=== PATIENT | female | born 1965 | race Caucasian/White ===

== ENCOUNTER 2022-04-03 08:00 | Outpatient (NON) | payer OTHER, SELFPAY | END 2022-04-03 08:01 | disposition home or self-care (01) | PROVIDERS: PCP Internal Medicine Infectious Disease; Visit Provider Internal Medicine Gastroenterology | DX: K63.5 Polyp of colon (principal) | CPT/HCPCS: 88305 ==

== ENCOUNTER 2022-04-03 12:33 | Day surgery (SDC) | payer OTHER, SELFPAY ==
[2022-03-20 13:17] VITALS: BMI 23.1
--- NOTE | 2022-04-03 11:50 | P.PNAN_ITS ---
Anes - Initial Pre Proc Eval Procedure: Operation Date: 04/03/22 14:30 Proposed Procedures p Screening Colonoscopy - Hernando Boo MD Date/Time: 04/03/22 11:50 Surgeon: Hernando Boo MD Pre Op Diagnosis: History of Polyps Patient Data Age: 56 Gender: F Height: 1.63 m Weight: 61 kg Allergies Allergy/AdvReac Type Severity Reaction Status Date / Time No Known Allergies Allergy Unverified 04/03/22 13:29 Home Medications Medication Instructions Recorded Confirmed Type sodium,potassium,mag sulfates 17.5 See Rx Instructions PO .COMPLEX 02/12/22 03/20/22 Rx gram-3.13 gram-1.6 gram oral soln #354 mL (Suprep Bowel Prep Kit) peg 3350-electrolytes 236 240 ml PO Q10M #4,000 mL 03/30/22 04/03/22 Rx gram-22.74 gram-6.74 gram-5.86 gram solution (Golytely) Patient hx anesthesia problems: none Family hx anesthesia problems: none Results Review: All pre-operative results and documents have been reviewed as part of the pre- operative evaluation. [facility] Social History Social History Smoking packs per day: 1 Smoking cigarettes per day: 20.0 Years smoked: 20 Smoking pack-years: 20.00 Smoking status: Former smoker Tobacco type: cigarettes Alcohol intake: current Substance use: never Substance use type: does not use Living arrangements: with family Spiritual care concerns: No Anes - Eval Final PreProcedure Day of Procedure 04/03/22 11:50 Patient weight: normal Heart: regular rate and rhythm Lungs: decreased breath sounds Airway: Mallampati scale class II Neurological: alert and oriented Last oral intake: >/= 8 hours ASA classification: II Emergent: no Anesthetic plan: proceed Anesthesia type and monitoring: general GIVS and standard monitoring Results Review: All pre-operative results and documents have been reviewed as part of the pre- operative evaluation. Informed Consent: The patient's anesthetic plan and its attendant risks and benefits were discussed with the patient/family/POA. Questions were solicited and answers provided to the satisfaction of the patient/family/POA.
[2022-04-03 13:30] VITALS: BP 114/82; PULSE 69; RESP 20; TEMP 36.7; O2SAT 100
[2022-04-03] MEDS: LACTATED RINGERS 1,000 ML 150 ML IV CONT (13:42)
--- NOTE | 2022-04-03 13:48 | P.HP_ITS ---
History of Present Illness History of Present Illness Consent: Risks, benefits, and alternatives have been discussed and questions answered. Patient agrees to proceed with procedure. Chief complaint: History of Polyps Narrative: Diane Choudhury is a 56 year old female Presents for screening colonoscopy. Patient has a history of adenomatous colon polyp removed the colon 2016. Patient's current weight appetite bowel movements are normal. She denies abdomi nal pain. She has had no bleeding. Family history is somewhat uncertain her parents may have had non Prieb malignant polyps. Patient presents today for neoplasia screening. Review of Systems Review of Systems: Review of systems noncontributory. [facility] Social History Social History Smoking packs per day: 1 Smoking cigarettes per day: 20.0 Years smoked: 20 Smoking pack-years: 20.00 Smoking status: Former smoker Tobacco type: cigarettes Alcohol intake: current Substance use: never Substance use type: does not use Living arrangements: with family Spiritual care concerns: No Meds Home Medications and Allergies Home Medications Medication Instructions Recorded Confirmed Type sodium,potassium,mag sulfates 17.5 See Rx Instructions PO .COMPLEX 02/12/22 03/20/22 Rx gram-3.13 gram-1.6 gram oral soln #354 mL (Suprep Bowel Prep Kit) peg 3350-electrolytes 236 240 ml PO Q10M #4,000 mL 03/30/22 04/03/22 Rx gram-22.74 gram-6.74 gram-5.86 gram solution (Golytely) Allergies Allergy/AdvReac Type Severity Reaction Status Date / Time No Known Allergies Allergy Unverified 04/03/22 13:29 Vital Signs Vital Signs - 24 hr 04/03/22 13:30 Temperature 98.1 F Pulse Rate 69 Respiratory Rate 20 Blood Pressure 114/82 Pulse Oximetry 100 Oxygen Delivery Room Air Exam Narrative: Physical exam reveals patient to be alert. Vital signs stable. HEENT exam is unremarkable. Patient is anicteric. Lungs are clear to auscultation and percussion. Heart is without murmur or extra sounds. Abdomen bowel sounds present soft nontender with no organomegaly. Digital external rectal exam is normal. Assessment and Plan Assessment and plan (1) History of colon polyps: Code(s): Z86.010 - Personal history of colonic polyps Status: Acute Assessment and Plan: Patient has a prior history of adenomatous colon polyp resected from the colon 2017. Plan is for surveillance colonoscopy at this time. Further recommendations will be given after endoscopy.
[2022-04-03 15:19] VITALS: BP 98/67; PULSE 63; RESP 18; TEMP 36.7; O2SAT 100
[2022-04-03 15:29] VITALS: BP 110/77; PULSE 70; RESP 18; O2SAT 100
--- NOTE | 2022-04-03 15:34 | WPDANESPN ---
Anes - Prog Note Post-Op Date/Time: 04/03/22 15:34 Cardiovascular status: normal Respiratory status: normal Airway patency: baseline Mental status: baseline Post-Op hydration status: normal Vital Signs: Last Vital Signs Temp 36.7 C 04/03/22 15:19 Pulse 70 04/03/22 15:29 Resp 18 04/03/22 15:29 BP 110/77 04/03/22 15:29 Pulse Ox 100 04/03/22 15:29 O2 Del Method Room Air 04/03/22 15:29 Pain Score (VAS): 0 I/O: Intake & Output 04/02/22 04/03/22 04/03/22 23:59 07:59 15:59 Intake Total 900 Balance 900 Patient Feedback: Patient satisfied with anesthetic care.
[2022-04-03 15:39] VITALS: BP 117/72; PULSE 57; RESP 18; O2SAT 100
== END 2022-04-03 15:50 | disposition home or self-care (01) ==
PROVIDERS: PCP Internal Medicine Infectious Disease; Visit Provider Internal Medicine Gastroenterology
PROC: 0DJD8ZZ Inspection of Lower Intestinal Tract, Via Natural or Artificial Opening Endoscopic (ICD-10-PCS; CPT 45378; principal; 2022-04-03 14:30)
DX: Z12.11 Encounter for screening for malignant neoplasm of colon (principal)
CPT/HCPCS: 45385